=== PATIENT | male | born 1935 | race Caucasian/White ===

== ENCOUNTER 2024-02-27 11:43 | Inpatient (IN) | payer OTHER, BC ==
[2024-02-27 13:53] LABS: HEMATOCRIT 44.8 % (35.4-49); HEMOGLOBIN 14.9 G/dL (11.7-16.9); MCH 30.8 pg (25.7-33.7); MCHC 33.2 g/dl (32.0-35.9); MEAN CELL VOLUME 92.8 fl (80-96); MEAN PLT VOLUME 9.8 fl (7.5-11.1); PLATELET COUNT 128.6 10^3/uL (134-434); RBC 4.83 10^6/uL (4.00-5.60); RDW 16.2 % (11.9-15.9); WHITE BLOOD COUNT 6.9 10^3/uL (4.0-10.8)
[2024-02-27 14:01] LABS: ALBUMIN 3.8 g/dl (3.4-5.0); BILIRUBIN,TOTAL 1.3 mg/dl (0.2-1); CALCIUM 9.4 mg/dl (8.5-10.1); CREATININE 0.8 mg/dl (0.6-1.3); PLATELET ESTIMATE ADEQUATE; POTASSIUM 4.1 mmol/L (3.5-5.1); TOT PROT 7.2 g/dl (6.4-8.2)
[2024-02-27] MEDS ORDERED: DOCUSATE SODIUM 100 MG CAPSULE (FP) PO PRN (20:38)
[2024-02-27 20:44] LABS: URINE HYALINE CAST 0-2 /lpf
[2024-02-27 20:49] LABS: URINE MUCUS 1+
[2024-02-28] MEDS: ACETAMINOPHEN 325 MG TABLET (FP) PO PRN (00:16)
[2024-02-28] MEDS ORDERED: LORazepam 0.5 MG TABLET PO PRN (04:49)
[2024-02-28] MEDS: THIAMINE HCL 100 MG TABLET (FP) PO SCH (09:33)
[2024-02-28] MEDS: FOLIC ACID 1 MG TABLET (FP) PO SCH (09:34)
[2024-02-28] MEDS: MULTIVITAMINS (DAILY MVI) TABLET (FP) PO SCH (09:34)
[2024-02-28] MEDS: ENOXAPARIN NA (PORCINE) 40 MG/0.4 ML DISP.SYRIN SQ SCH (09:34)
[2024-02-28 09:50] LABS: HEMATOCRIT 40.7 % (35.4-49); HEMOGLOBIN 13.4 G/dL (11.7-16.9); MCH 30.5 pg (25.7-33.7); MCHC 32.9 g/dl (32.0-35.9); MEAN CELL VOLUME 92.7 fl (80-96); MEAN PLT VOLUME 9.9 fl (7.5-11.1); PLATELET COUNT 124.9 10^3/uL (134-434); RBC 4.39 10^6/uL (4.00-5.60); RDW 16.6 % (11.9-15.9); WHITE BLOOD COUNT 3.5 10^3/uL (4.0-10.8)
[2024-02-28 10:08] LABS: CREATININE 0.8 mg/dl (0.6-1.3); PHOSPHOROUS 2.8 (2.5-4.9); POTASSIUM 3.8 mmol/L (3.5-5.1)
[2024-02-28] MEDS: BACITRACIN ZINC 15 GM TUBE TOPICAL OINTMENT TP SCH (12:45)
[2024-02-28] MEDS: PANTOPRAZOLE 40 MG TABLET PO SCH (14:39)
[2024-02-28] MEDS: MELATONIN 5 MG TABLETS PO PRN (21:32)
[2024-02-29 08:52] LABS: HEMOGLOBIN 13.1 G/dL (11.7-16.9); MCH 30.4 pg (25.7-33.7); MCHC 32.7 g/dl (32.0-35.9); MEAN CELL VOLUME 92.9 fl (80-96); MEAN PLT VOLUME 9.5 fl (7.5-11.1); RBC 4.31 10^6/uL (4.00-5.60); RDW 16.1 % (11.9-15.9); WHITE BLOOD COUNT 2.8 10^3/uL (4.0-10.8)
[2024-02-29 10:12] LABS: ALBUMIN 3.1 g/dl (3.4-5.0); BILIRUBIN,TOTAL 1.2 mg/dl (0.2-1); CALCIUM 8.6 mg/dl (8.5-10.1); CREATININE 0.7 mg/dl (0.6-1.3); POTASSIUM 3.5 mmol/L (3.5-5.1)
[2024-02-29 10:20] LABS: PLATELET ESTIMATE ADEQUATE
[2024-02-29] MEDS: LIDOCAINE 5% TOPICAL PATCH TP SCH (10:21)
[2024-02-29] MEDS: LIDOCAINE PATCH REMOVAL MC SCH (21:05)
[2024-03-01 02:00] VITALS: RESP 18
[2024-03-01 09:57] LABS: BASO % 0.9 % (0-2.0); EOS % 1.3 % (0-4.5); HEMATOCRIT 38.3 % (35.4-49); HEMOGLOBIN 12.6 GM/dL (11.7-16.9); LYMPH % 22.2 % (8-40); MCH 30.5 pg (25.7-33.7); MCHC 32.9 g/dl (32.0-35.9); MEAN CELL VOLUME 92.7 fl (80-96); MEAN PLT VOLUME 9.3 fl (7.5-11.1); MONO % 12.2 % (3.8-10.2); NEUT % 63.4 % (42.8-82.8); PLATELET COUNT 128 10^3/uL (134-434); RBC 4.13 M/mm3 (4.00-5.60); RDW 16.4 % (11.9-15.9); WHITE BLOOD COUNT 2.5 K/mm3 (4.0-10.0)
[2024-03-01 14:45] VITALS: BP 137/72; PULSE 79; TEMP 98
== END 2024-03-01 15:25 | disposition home health service (06) | DRG 554 ==
LOC: FER 11:43 → FM/S 15:02
PROVIDERS: ADMIT Internal Medicine; ATTEND Internal Medicine
DX: M17.0 Bilateral primary osteoarthritis of knee (principal); F03.90 Unspecified dementia, unspecified severity, without behavioral disturbance, psychotic disturbance, mood disturbance, and anxiety; D69.6 Thrombocytopenia, unspecified; R26.2 Difficulty in walking, not elsewhere classified; R55 Syncope and collapse; I08.3 Combined rheumatic disorders of mitral, aortic and tricuspid valves; C61 Malignant neoplasm of prostate; M25.562 Pain in left knee; M25.561 Pain in right knee; I45.10 Unspecified right bundle-branch block; S51.011A Laceration without foreign body of right elbow, initial encounter; W18.30XA Fall on same level, unspecified, initial encounter; Y93.9 Activity, unspecified; Y92.092 Bedroom in other non-institutional residence as the place of occurrence of the external cause; Z96.641 Presence of right artificial hip joint; M62.838 Other muscle spasm
CPT/HCPCS: 36415; 70450-TC; 71045-TC-FY; 72125-TC; 72170-TC-FY; 73560-TC-LT-FY; 73560-TC-RT-FY; 80048; 80053; 81003; 81015; 82607; 82746; 83735; 84100; 84439; 84443; 84484; 85025; 85027; 93005; 93010; 93306-TC; 93880-TC; 97116-GP; 97161-GP; 99285-25